=== PATIENT | female | born 1955 | race Caucasian/White ===

== ENCOUNTER → 2016-06-11 | Outpatient (CLI) | payer MEDICARE, OTHER ==
[~2016-06-11] MED LIST: ADULT LOW DOSE81 MG PO; ADVAIR 250-501 EACH IH; ATROVENT INH S2.5 ML INH; FOLIC ACID1 MG PO; HORIZANT300 MG PO; IMDUR ER TAB 3030 MG PO; LEVAQUIN750 MG PO; LIPITOR TAB 2020 MG PO; LOPRESSOR 25 MG25 MG PO; PHENERGAN 25 MG25 M1 PO; PLAVIX 75 MG TA75 MG PO; PROTONIX40 MG PO; SYNTHROID75 MCG PO; TYLENOL 325MG325 MG PO; VENTOLIN/PROVE0.5 ML INH; VITAMIN D50000 UNIT PO
== END ==
LOC: CT 08:00 → OPSV 08:11
DX: C18.0 Malignant neoplasm of cecum (principal); C77.2 Secondary and unspecified malignant neoplasm of intra-abdominal lymph nodes; R91.1 Solitary pulmonary nodule
CPT/HCPCS: 71260; J1642; J7050; Q9962